=== PATIENT | female | born 1955 | race African-American/Black ===

== ENCOUNTER 2022-02-28 11:59 | Emergency (ER) | payer MEDICARE, MEDICAID ==
[2022-02-28] MEDS ORDERED: HYDROcodone/Acetaminophen 10/325 mg Tablet ONE (12:49)
== END 2022-02-28 14:40 | disposition home or self-care (01) ==
LOC: CSHERS 11:59
DX: M79.651 Pain in right thigh (principal); E11.9 Type 2 diabetes mellitus without complications; I10 Essential (primary) hypertension; E03.9 Hypothyroidism, unspecified

== ENCOUNTER 2023-08-21 04:06 | Emergency (ER) | payer OTHER, MEDICAID ==
[2023-08-21] MEDS ORDERED: Acetaminophen 500 MG TAB ONE (04:37)
== END 2023-08-21 05:43 | disposition home or self-care (01) ==
LOC: CSHERS 04:06
DX: R59.0 Localized enlarged lymph nodes (principal); I10 Essential (primary) hypertension; E11.9 Type 2 diabetes mellitus without complications; E03.9 Hypothyroidism, unspecified; Z79.84 Long term (current) use of oral hypoglycemic drugs; Z79.899 Other long term (current) drug therapy
CPT/HCPCS: 70360; 71045